=== PATIENT | male | born 1965 | race African-American/Black ===

== ENCOUNTER 2020-05-20 17:33 | Emergency (ER) | payer MEDICARE, SELFPAY ==
[2020-05-20 17:49] VITALS: BP 170/85; PULSE 77; RESP 16; TEMP 37.4; O2SAT 98
--- NOTE | 2020-05-20 18:05 | ED.GENADULT ---
HPI - General Adult General Chief complaint: Back Pain/Injury Stated complaint: Lower back pain Time Seen by Provider: 05/20/20 17:57 Source: patient and RN notes reviewed Mode of arrival: ambulatory Limitations: no limitations History of Present Illness HPI narrative: Patient presents today requesting evaluation of his back and hips. 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 Patient called today to see if he could come into work today and was told he had to be evaluated to return to work first to make sure he had strength and normal mobility in his back and hips. Patient is currently pain-free. Denies numbness or tingling in the extremities. Has no chronic back pain. States, I need to checked to make sure I can do this and proceeds to bend fully at the waist, squat fully down to the ground and back up to standing position, twist his body left and right, and march in place with his hips up to 90 degrees. MD complaint: Back and hip evaluation Related Data Home Medications Medication Instructions Recorded Confirmed clonidine 05/20/20 Allergies Allergy/AdvReac Type Severity Reaction Status Date / Time Penicillins Allergy Swelling Verified 05/20/20 17:52 Review of Systems Review of Systems: Narrative: CONSTITUTIONAL: Denies body aches, fever, chills, or sweats. EYES: Denies visual changes, redness, or discharge. ENT: Denies rhinorrhea, congestion, sore throat, or otalgia. CARDIOVASCULAR: Denies chest pain, palpitations, or edema. RESPIRATORY: Denies cough or dyspnea. GASTROINTESTINAL: Denies abdominal pain, nausea, vomiting, or diarrhea. GENITOURINARY: Denies dysuria or hematuria. SKIN: Denies rash, itching, or wounds. +back and hip evaluation MUSCULOSKELETAL: Denies back pain, joint pain, or myalgia. NEUROLOGIC: Denies headache, numbness, tingling, or weakness. PSYCH: Denies depression or anxiety. [facility] Surgical History Surgical History (Updated 05/20/20 @ 18:22 by Vangie L. Mihelcic, [employer]ULT [employer]UDIES TE[employer]ER, BC) History of right hip replacement Social History Social History Gender identity (if verbalized by the patient): Male Comments At time of signature, I have reviewed and agree with nursing past medical, surgical, social and family history unless otherwise noted. Please see nursing chart for further information. There is no relevant family history pertinent to the presenting complaint Exam Narrative: Exam Narrative: GENERAL: Well-appearing, well-nourished, and in no acute distress. HEAD: Normocephalic, atraumatic. EYES: EOMI. No redness or drainage. Conjunctivae normal. ENT: Mucous membranes pink and moist. NECK: Normal AROM. CHEST: No respiratory distress. MUSCULOSKELETAL: No bony tenderness of the spine. No muscular tenderness of the spine. Patient has full range of motion of the spine without pain. EXTREMITIES: Normal range of motion of arms and legs. No tenderness to either hip. Distal sensation intact. Capillary refill normal. Posterior tibial pulses normal. Foot push and pulls equal and strong. Hip flexor strong and equal. No edema. SKIN: Warm, dry, no rash. Capillary refill normal. Normal skin turgor. NEURO: No focal deficits. Alert and oriented x3. Gait steady. PSYCH: Normal affect. No signs of depression or anxiety. Course Vital Signs Vital signs: Vital Signs Temperature 99.3 F 05/20/20 17:49 Pulse Rate 77 05/20/20 17:49 Respiratory Rate 16 05/20/20 17:49 Blood Pressure 170/85 H 05/20/20 17:49 Pulse Oximetry 98 05/20/20 17:49 Temperature 99.3 F 05/20/20 17:49 Pulse Rate 77 05/20/20 17:49 Respiratory Rate 16 05/20/20 17:49 Blood Pressure 170/85 H 05/20/20 17:49 Pulse Oximetry
== END 2020-05-20 18:10 | disposition home or self-care (01) ==
PROVIDERS: Emergency Provider Nurse Practitioner
DX: M54.5 Low back pain (principal); M25.551 Pain in right hip; Z96.641 Presence of right artificial hip joint
CPT/HCPCS: 99201; G0463